=== PATIENT | male | born 1990 | race Caucasian/White ===

== ENCOUNTER 2018-02-05 00:36 | Emergency (ER) | payer SELFPAY ==
[2018-02-05 00:49] VITALS: BP 129/79
[2018-02-05] MEDS ORDERED: TRIPLE ANTIBIOTIC TP ONE (02:37)
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
== END 2018-02-05 03:15 | disposition home or self-care (01) ==
LOC: ED 00:36
DX: S00.81XA Abrasion of other part of head, initial encounter (principal); V19.9XXA Pedal cyclist (driver) (passenger) injured in unspecified traffic accident, initial encounter; Y93.89 Activity, other specified; Y92.89 Other specified places as the place of occurrence of the external cause; Y99.8 Other external cause status
CPT/HCPCS: 99283; A6250